=== PATIENT | female | born 1930 | race Caucasian/White ===

== ENCOUNTER 2018-06-20 15:36 | Inpatient (IN) | payer OTHER ==
[~2018-06-20] VITALS: Ht 165.1 cm; Wt 107.5 kg
--- NOTE | ~2018-06-20 | HC ---
[facility] [place] [address] CONSULTATION Name: RADHA CAMPOS Room #: 216-P [facility] IN .R.#: [id number] Admission: 06/21/18 Attend Phys: Orlando Aguilera MD Discharge: Date of : 12/23/30 Report #: [id number] THIS REPORT FOR: //name// CC: Orlando Aguilera DATE OF SERVICE: 06/21/2018 TYPE OF REPORT: Nephrology consultation. ATTENDING PHYSICIAN: Orlando Aguilera M.D. REASON FOR CONSULTATION: Anasarca. HISTORY OF PRESENT ILLNESS: An 87-year-old patient with progressive end-stage chronic pulmonary fibrosis, presents with anasarca and difficulty with diuresis. Renal function reasonably good with a creatinine of 1.1. Home medication list is not obtained as of yet and the patient is unfortunately somewhat of a poor historian. PAST MEDICAL HISTORY: She did have a broken hip on the right and had a hip surgery with nails and hardware done over the holiday. SOCIAL HISTORY: She denies ever smoking. REVIEW OF SYSTEMS: GENERAL: She has been feeling poorly, easily short-winded using chronic oxygen. EYES: Her vision okay. ENT: Hearing is a bit poor. ENDOCRINE: No diabetes or thyroid disease. RESPIRATORY: Chronically and severely short of breath. CARDIAC: No chest pain or palpitations. GASTROINTESTINAL: Appetite has been somewhat poor without much abdominal pain. GENITOURINARY: No dysuria. MUSCULOSKELETAL: She has got diffuse muscle pain and weakness. SKIN: No lesions there. NEUROLOGICAL: Generalized weakness. PHYSICAL EXAMINATION: GENERAL: This is a chronically ill-appearing elderly patient, awake, alert. SKIN: Unremarkable. SKELETAL: Very swollen. HEENT: Extraocular movements full. Vision intact with corrective lenses. Hearing decreased. NECK: Supple. CHEST: Shows diminished breath sounds with crackles. HEART: Regular. [facility] [address] [place] [address] CONSULTATION Name: ESTEFANIA CAMPOSWILBER Iyer Room #: 216-P [facility] IN ..#: [id number] Admission: 06/21/18 Attend Phys: Orlando Aguilera MD Discharge: Date of : 12/23/30 Report #: [id number] ABDOMEN: Very swollen. BREAST: The left breast is very swollen. EXTREMITIES: Show 4+ brawny edema. LABORATORY DATA: Hemoglobin 10.9 and platelets 293. Sodium 135, potassium 4.7, chloride 98, bicarbonate 29, BUN 34 and creatinine 1.1. ASSESSMENT AND PLAN: 1. Anasarca. She has pulmonary hypertension, very severe with cor pulmonale, very severely swollen, will be offered difficult to get this fluid off in any way, shape or manner. 2. Pulmonary fibrosis with severe pulmonary hypertension. 3. Status post right hip fracture with surgery and hardware. <ELECTRONICALLY SIGNED> By: Marco Amor MD 06/23/18 1109 [id number] Marco Amor MD /nt
--- NOTE | ~2018-06-20 | 2DMMODE ---
[facility] [place] [address] 2 D/M-MODE ECHOCARDIOGRAM Name: RADHA CAMPOS Room #: 216-P [facility] IN ..#: [id number] Admission: 06/20/18 Attend Phys: Oralndo Aguilera, Discharge: Date of : 12/23/30 Date of Service: 06/21/18 1427 Report #: [id number] THIS REPORT FOR: //name// APPROVED REPORT Study performed: 06/21/2018 12:59:49 EXAM: Comprehensive 2D, Doppler, and color-flow Echocardiogram Patient Location: Bedside Room #: 216 Status: routine BSA: 2.17 HR: 72 bpm BP: 143/84 mmHg Rhythm: NSR Other Information Study Quality: Adequate Indications Dyspnea Anasarca 2D Dimensions RVDd: 57.23 mm IVSd: 8.70 (7-11mm) LVOT Diam: 16.52 (18-24mm) LVDd: 43.88 mm PWd: 8.75 (7-11mm) Ascending Ao: 30.97 (22-36mm) LVDs: 27.52 (25-40mm) Aortic Root: 26.90 mm IVC: 25.00 mm Volumes Left Atrial Volume (Systole) Single Plane 4CH: 33.97 mL Single Plane 2CH: 26.73 mL LA ESV Index: 16.00 mL/m2 Aortic Valve AoV Peak Huy.: 1.72 m/s AO Peak Gr.: 11.83 mmHg LVOT Max P.51 mmHg LVOT Max V: 1.06 m/s CRYSTAL Vmax: 1.32 cm2 Mitral Valve E/A Ratio: 0.6 MV Decel. Time: 374.13 ms [facility] [place] [address] [address] 2 D/M-MODE ECHOCARDIOGRAM Name: RADHA CAMPOS Room #: 216-P [facility].#: [id number] Admission: 06/20/18 Attend Phys: Orlando Aguilera, Discharge: Date of : 12/23/30 Date of Service: 06/21/18 1427 Report #: [id number] MV E Max Huy.: 0.88 m/s MV A Huy.: 1.38 m/s MV PHT: 108.50 ms IVRT: 143.02 ms Pulmonary Valve PV Peak Huy.: 1.39 m/s PV Peak Gr.: 7.74 mmHg DC End Vmax: 2.15 m/s Pulmonary Vein P Vein S: 0.48 m/s P Vein A: 0.32 m/s P Vein D: 0.42 m/s P Vein A Dur.: 106.1 msec P Vein S/D Ratio: 1.14 Tricuspid Valve TR Peak Huy.: 4.64 m/s TR Peak Gr.: 86.06 mmHg PA Pressure: 101.00 mmHg Left Ventricle The left ventricle is normal size. There is normal left ventricular wall thickness. The left ventricular systolic function is normal. The left ventricular ejection fraction is within the normal range. LVEF is 55-60%. Grade I - abnormal relaxation pattern. Right Ventricle Right ventricle is severely dilated. Right ventricle is hypokinetic. Atria The left atrium size is normal. Right atrium is severely dilated. Aortic Valve The aortic valve is normal in structure. No aortic regurgitation is present. Cannot exclude aortic valve vegetation. There is no aortic valvular stenosis. Mitral Valve The mitral valve is normal in structure. Trace mitral regurgitation. No evidence of mitral valve stenosis. Tricuspid Valve The tricuspid valve is normal in structure. There is moderate to severe tricuspid regurgitation. Estimated PAP 101 mmHg. There is severe pulmonary hypertension. [facility] [address] [place] [address] 2 D/M-MODE ECHOCARDIOGRAM Name: RADHA CAMPOS Room #: 216-P [facility] IN ..#: [id number] Admission: 06/20/18 Attend Phys: Orlando Aguilera, Discharge: Date of : 12/23/30 Date of Service: 06/21/18 1427 Report #: [id number] Pulmonic Valve The pulmonary valve is normal in structure. Mild pulmonic regurgitation. Great Vessels The aortic root is normal in size. The inferior vena cava is dilated with no inspiratory collapse. Pericardium There is no pericardial effusion. <Conclusion> The left ventricle is normal size. LVEF is 55-60%. Right ventricle is severely dilated. Right ventricle is hypokinetic. The left atrium size is normal. Right atrium is severely dilated. The aortic valve is normal in structure. Cannot exclude aortic valve vegetation. The mitral valve is normal in structure. Trace mitral regurgitation. The tricuspid valve is normal in structure. There is moderate to severe tricuspid regurgitation. Estimated PAP 101 mmHg. There is severe pulmonary hypertension. The pulmonary valve is normal in structure. Mild pulmonic regurgitation. There is no pericardial effusion. <ELECTRONICALLY SIGNED> By: Jose Covington MD 06/21/18 1427 1427 142 Jose Covington MD /INF
--- NOTE | ~2018-06-20 | HC ---
[facility] [place] [address] CONSULTATION Name: RADHA CAMPOS Room #: 216-P ADM IN M.R.#: [id number] Admission: 06/21/18 Attend Phys: Orlando Aguilera MD Discharge: Date of : 12/23/30 Report #: [id number] THIS REPORT FOR: //name// CC: Orlando Aguilera TYPE OF REPORT: Pulmonary consultation. REFERRAL PHYSICIAN: Orlando Aguilera M.D. REASON FOR REFERRAL: Pulmonary hypertension, pulmonary fibrosis and edema. HISTORY OF PRESENT ILLNESS: The patient is an 87-year-old white female who was admitted to the hospital with progressive edema and dyspnea. A Pulmonary consultation was requested. The patient states that she has been followed by Dr. Indio Fraga at [place], [place] for her pulmonary problems. She has been told that she has idiopathic pulmonary fibrosis 10 years ago. She was also told that she had pulmonary hypertension over time. She states that she has had episodically developed a lower extremity edema that improves with diuretics. She recently fell and sustained a hip fracture. She recently underwent surgical repair and has been staying [facility]. Otherwise, she denies any fever, night sweats or chills, chest pain or productive cough. PAST MEDICAL HISTORY: As mentioned above. Past history of cholecystectomy, hysterectomy and appendectomy. PAST SURGICAL HISTORY: As mentioned above. ALLERGIES: To NITROFURANTOIN, reactions unspecified. CURRENT MEDICATIONS: Reviewed. She is on Aldactone, Rocephin, Lasix and Xanax. FAMILY HISTORY: Noncontributory. SOCIAL HISTORY: The patient denies any tobacco or alcohol use. She normally lives in [place], [place]. Her son lives in [place]. REVIEW OF SYSTEMS: As mentioned above, otherwise 10-point system review negative. PHYSICAL EXAMINATION: GENERAL: She is awake, alert, appears in mildly short of breath. VITAL SIGNS: Temperature is 98 degrees Fahrenheit, pulse is 80, respiratory [facility] [address] [place] [address] CONSULTATION Name: RADHA CAMPOS Room #: 216-P [facility] IN ..#: [id number] Admission: 06/21/18 Attend Phys: Orlando Aguilera MD Discharge: Date of : 12/23/30 Report #: [id number] rate is 20, blood pressure 135/74 mmHg and saturation 97%. HEENT: Normocephalic and atraumatic. NECK: Supple, without any lymphadenopathy or thyromegaly. CHEST: Breath sounds are good bilaterally without any rales or wheezes. CARDIOVASCULAR: Normal S1 and S2. There are no murmurs or gallop. There is no JVD. There is no carotid bruit. Pulses are 2+/4+ bilaterally. ABDOMEN: Obese, soft and nontender. No organomegaly or masses felt. GENITOURINARY: Deferred. RECTAL: Deferred. EXTREMITIES: No cyanosis or clubbing, is notable for 4/4+ bilateral pretibial edema. RADIOLOGICAL DATA: Chest x-ray shows elevated right hemidiaphragm, mild interstitial infiltrates seen, more in the right than the left. A CT chest shows cardiomegaly, subpleural fibrosis, predominantly greater in the right than the left lung field. CT abdomen and pelvis shows diffuse anasarca, previous right hip nailing and small ascites. Echocardiogram performed shows ejection fraction 55%-60%, right ventricle severely dilated, left ventricle is normal size, right atrium is severely dilated, aortic valve is normal, pulmonary artery pressure measures 101 mmHg. Ultrasound of the lower extremities showed no evidence of DVT. Electrolytes: Sodium 135, potassium 4.7, chloride 98, CO2 is 29, BUN is 34, creatinine is 1.1. Liver enzymes are mildly abnormal. WBC 11,200, hemoglobin 10.9 and platelets are normal. Albumin 2.9. Arterial blood gas revealed pH 7.42, pCO2 of 51 and pO2 of 96 on 4 liters of O2. IMPRESSION: 1. Yhlox-gw-sgoccoj hypercapnic hypoxic respiratory failure in this 87-year-old white female. She has a history of pulmonary fibrosis along with pulmonary hypertension. She has a history of recurrent lower extremity edema. Suspect [id number] right-sided heart failure due to cor pulmonale. 2. Severe pulmonary hypertension due to pulmonary fibrosis. 3. Pulmonary fibrosis, she has a history of idiopathic pulmonary fibrosis, which is consistent with chest CT findings. 4. Cor pulmonale with history of right-sided heart failure as mentioned above. 5. Chronic hypercapnia. It is unclear if she has had a prior workup including a sleep study. She does not appear to have a history of chronic obstructive pulmonary disease. 6. Marked lower extremity edema due to right-sided heart failure due to cor pulmonale. RECOMMENDATIONS: Agree with diuresis. Wean O2 for saturation 90%. 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 Indio Fraga at [place], [place]. We will defer any further workup at this time. She also appears to have pulmonary fibrosis likely IPF based on the CT chest findings. We will also defer any further workup and [facility] [address] [place] [address] CONSULTATION Name: RADHA CAMPOS Room #: 216-P ADM IN M.R.#: [id number] Admission: 06/21/18 Attend Phys: Orlando Aguilera MD Discharge: Date of : 12/23/30 Report #: [id number] treatment and we will defer to a final inspector truck trailer when she returns home. For now, continue diuresis as you are. Thank you for this consultation. <ELECTRONICALLY SIGNED> By: Gabe Cardenas MD 06/23/18 [id number] Gabe Cardenas MD /nt
[2018-06-20 16:45] VITALS: BP 148/63
[2018-06-20 16:52] LABS: HEMATOCRIT 33.5 % (37.0-47.0); HEMOGLOBIN 10.9 gm/dL (12.0-15.0); MCH 28.1 pg (26.0-34.0); MCHC 32.6 g/dL (28.0-37.0); MCV 86.3 fL (80.0-100.0); RBC 3.89 mil/uL (4.20-5.00); RDW 16.7 % (10.5-14.5); WBC 11.2 thou/uL (4.0-11.0)
[2018-06-20 17:09] LABS: ALBUMIN 3.2 g/dL (3.4-5.0); CALCIUM 9.7 mg/dL (8.5-10.1); CREATININE 1.1 mg/dL (0.6-1.0); POTASSIUM 4.7 mmol/L (3.5-5.1); TOTAL BILIRUBIN 0.9 mg/dL (<0.1-1.0); TOTAL PROTEIN 7.5 g/dL (6.4-8.2)
[2018-06-20 20:39] VITALS: BP 138/51
[2018-06-21 08:30] VITALS: BP 143/84
[2018-06-21 12:10] VITALS: BP 137/76
[2018-06-21 15:35] LABS: URINE BILIRUBIN NEGATIVE (Negative); URINE BLOOD 3+ (Negative); URINE CLARITY CLEAR; URINE COLOR YELLOW; URINE GLUCOSE-RANDOM* NEGATIVE (Negative); URINE KETONES NEGATIVE (Negative); URINE LEUKOCYTES TRACE (Negative); URINE NITRITE NEGATIVE (Negative); URINE PROTEIN (DIPSTICK) 1+ (Negative); URINE SPECIFIC GRAVITY 1.015 (1.005-1.035); URINE UROBILINOGEN 0.2 E.U./dl (0.2-1.0)
[2018-06-21 15:42] LABS: YEAST Present (None Seen)
[2018-06-21 15:43] LABS: BACTERIA >30 Many /HPF (None Seen); CASTS None Seen /LPF (None Seen); CRYSTALS None Seen /LPF (None Seen); SQUAMOUS 0-3 Few /LPF (0-3); URINE RBC 3-10 Few /HPF (0-2); URINE WBC 6-15 Few /HPF (0-5)
[2018-06-21 16:00] LABS: PROT/CREAT RATIO 0.8; URINE CREATININE-RANDOM* 64.2 mg/dL; URINE PROTEIN-RANDOM* 52.6 mg/dL (<11.9)
[2018-06-21 16:25] VITALS: BP 137/69
[2018-06-21 21:24] VITALS: BP 153/57
[2018-06-22 04:19] LABS: ALBUMIN 2.9 g/dL (3.4-5.0); POTASSIUM 4.5 mmol/L (3.5-5.1)
[2018-06-22 05:55] VITALS: BP 124/70
[2018-06-22 07:17] LABS: BE(vivo) 7.2 mmol/L (-2 to +3); HCO3 32.7 mmol/L (22.0-26.0); PCO2 51.4 mmHg (35.0-45.0); PO2 96.7 mmHg (80.0-100.0); pH 7.422 (7.360-7.450); sO2 97.4 % (92.0-98.0)
[2018-06-22 08:28] VITALS: BP 132/76
[2018-06-22 15:09] VITALS: BP 135/74
[2018-06-22 20:53] VITALS: BP 148/75
[2018-06-23 04:02] LABS: ALBUMIN 2.8 g/dL (3.4-5.0); CALCIUM 8.5 mg/dL (8.5-10.1); CREATININE 0.9 mg/dL (0.6-1.0); PHOSPHORUS 3.9 mg/dL (2.5-4.9)
[2018-06-23 06:01] VITALS: BP 147/82
[2018-06-23 08:13] VITALS: BP 148/79
[2018-06-23 14:34] VITALS: BP 149/88
[2018-06-23 19:36] VITALS: BP 156/89
[2018-06-24 04:45] VITALS: BP 156/89
[2018-06-24 04:55] LABS: ALBUMIN 2.7 g/dL (3.4-5.0); CALCIUM 8.7 mg/dL (8.5-10.1); CREATININE 0.9 mg/dL (0.6-1.0); PHOSPHORUS 3.7 mg/dL (2.5-4.9); POTASSIUM 3.6 mmol/L (3.5-5.1)
[2018-06-24 07:50] VITALS: BP 168/92
[2018-06-24 19:45] VITALS: BP 143/87
[2018-06-25 05:30] LABS: CALCIUM 8.6 mg/dL (8.5-10.1); CREATININE 0.9 mg/dL (0.6-1.0); POTASSIUM 4.2 mmol/L (3.5-5.1)
[2018-06-25 05:32] LABS: ALBUMIN 2.7 g/dL (3.4-5.0); CALCIUM 8.8 mg/dL (8.5-10.1); CREATININE 0.9 mg/dL (0.6-1.0); PHOSPHORUS 3.3 mg/dL (2.5-4.9); POTASSIUM 4.2 mmol/L (3.5-5.1)
[2018-06-25 08:40] VITALS: BP 134/79
[2018-06-25 11:42] VITALS: BP 149/67
[2018-06-25 16:35] VITALS: BP 128/62
[2018-06-25 20:00] VITALS: BP 134/77
[2018-06-26 07:16] VITALS: BP 159/80
[2018-06-26 15:06] VITALS: BP 122/55
[2018-06-26 19:51] VITALS: BP 147/77
[2018-06-27 04:48] VITALS: BP 157/85
[2018-06-27 05:29] LABS: ALBUMIN 2.9 g/dL (3.4-5.0); CALCIUM 8.8 mg/dL (8.5-10.1); CREATININE 0.9 mg/dL (0.6-1.0); PHOSPHORUS 3.8 mg/dL (2.5-4.9); POTASSIUM 4.2 mmol/L (3.5-5.1)
[2018-06-27 08:20] VITALS: BP 148/75
[2018-06-27 15:16] VITALS: BP 137/67
[2018-06-27 19:05] VITALS: BP 124/58
[2018-06-28 04:57] LABS: ALBUMIN 2.8 g/dL (3.4-5.0); CALCIUM 8.6 mg/dL (8.5-10.1); PHOSPHORUS 3.9 mg/dL (2.5-4.9); POTASSIUM 4.3 mmol/L (3.5-5.1)
[2018-06-28 06:58] VITALS: BP 160/85
[2018-06-28 08:05] VITALS: BP 135/67
[2018-06-28 12:54] VITALS: BP 125/40
[2018-06-28 19:45] VITALS: BP 133/54
[2018-06-29 03:52] LABS: ALBUMIN 2.9 g/dL (3.4-5.0); CALCIUM 8.6 mg/dL (8.5-10.1); CREATININE 1.2 mg/dL (0.6-1.0); PHOSPHORUS 4.2 mg/dL (2.5-4.9); POTASSIUM 4.4 mmol/L (3.5-5.1)
[2018-06-29 08:24] VITALS: BP 132/65
[2018-06-29] MEDS ORDERED: DEMADEX 2020 MG/1 TA PO (11:11)
[2018-06-29] MEDS ORDERED: CHLORTHALIDONE25 MG PO (11:11)
[2018-06-29] MEDS ORDERED: ALDACTONE50 MG PO (11:11)
[2018-06-29] MEDS ORDERED: ACETAMINOPHEN325 M1 PO (11:11)
[2018-06-29] MEDS ORDERED: NYAMYC15 GM TOP (11:11)
== END 2018-06-29 15:00 | DRG 291 ==
LOC: 2N 15:36
PROVIDERS: Family Medicine; Hospitalist; Internal Medicine Nephrology; Internal Medicine Pulmonary Disease
DX: I50.30 Unspecified diastolic (congestive) heart failure (principal); J96.21 Acute and chronic respiratory failure with hypoxia; J96.22 Acute and chronic respiratory failure with hypercapnia; E87.3 Alkalosis; J84.112 Idiopathic pulmonary fibrosis; Z66 Do not resuscitate; E66.9 Obesity, unspecified; I27.29 Other secondary pulmonary hypertension; I50.810 Right heart failure, unspecified; N18.9 Chronic kidney disease, unspecified; Z87.81 Personal history of (healed) traumatic fracture; Z90.49 Acquired absence of other specified parts of digestive tract; Z91.81 History of falling; Z68.39 Body mass index [BMI] 39.0-39.9, adult; Z90.710 Acquired absence of both cervix and uterus; Z79.899 Other long term (current) drug therapy
CPT/HCPCS: 10797